=== PATIENT | male | born 1965 | race Caucasian/White ===

== ENCOUNTER 2023-06-22 16:04 | Emergency (ER) | payer OTHER, SELFPAY ==
[2023-06-22 16:12] VITALS: BP 156/96; PULSE 99; RESP 16; TEMP 36.8; O2SAT 96; BMI 41.5
[2023-06-22 16:18] VITALS: PULSE 100; RESP 16; TEMP 36.6; O2SAT 98
--- NOTE | 2023-06-22 16:36 | ED_ITS ---
HPI - Wound/Laceration General: Chief Complaint: Wound/Laceration Stated Complaint: hit on head Time Seen by Provider: 06/22/23 16:28 Source: patient Mode of arrival: ambulatory History of Present Illness: 57-year-old male presents to the emergency room with complaint of being struck in the head. He was working out of local [employer] and a metal barbara fell and hit him on the head. He was stunned he had no loss of consciousness no vision changes no nausea or vomiting is some mild neck discomfort. No nausea or vomiting since the episode happened approximately 2 and half hours ago. No radiation of pain into the arms. Onset (ago): hour(s) (2.5) Place: work Context: accidental Associated symptoms: Denies chills, fever(s), foreign body sensation, inability to move, nausea, numbness, pain, syncope or vomiting Review of Systems Const: Denies: fever(s), chills, fatigue or malaise ENMT: Denies: throat pain or ear or mastoid pain Card: Denies: chest pain or syncope Resp: Denies: dyspnea, productive cough or non-productive cough GI: Denies: abdominal pain, nausea or vomiting : Denies: flank pain, dysuria, urinary frequency or urinary urgency Musc: Reports: neck pain Skin/Breast: Denies: rash or pruritus Physical Exam Const: COMMON NORMALS: no acute distress GENERAL APPEARANCE: cooperative an d comfortable ORIENTATION/CONSCIOUSNESS: Yes awake, Yes oriented to person, Yes oriented to place and Yes oriented to time HENMT: COMMON NORMALS: normocephalic and hearing grossly normal bilaterally HEAD & SCALP: normocephalic Resp: COMMON NORMALS: normal respiratory effort, No retractions, No use of accessory muscles and clear to auscultation bilaterally AUSCULTATION: clear to auscultation bilaterally Cardio: COMMON NORMALS: regular rate, regular rhythm and No murmurs present (Cardio) RATE: regular rate RHYTHM: regular rhythm GI: COMMON NORMALS: Soft to palpation and No hepatosplenomegaly present AUSCULTATION: Yes normoactive bowel sounds PALPATION: Yes Soft to palpation, No Tenderness to palpation present (GI), No Guarding due to palpation present (GI) and Yes No hepatosplenomegaly present Extremity: COMMON NORMALS: normal to inspection, capillary refill normal, no clubbing, cyanosis or edema, no calf tenderness and no pedal edema Neuro: SENSORIUM/ORIENTATION: Yes oriented to person, Yes oriented to place and Yes oriented to time Skin: COMMON NORMALS: no rashes or lesions noted GENERAL SKIN EXAM: no rashes or lesions noted Course Vital Signs: Vital signs: Vital Signs Temperature 97.9 F 06/22/23 16:18 Pulse Rate 88 06/22/23 16:37 Respiratory Rate 18 06/22/23 16:37 Blood Pressure 157/95 06/22/23 16:37 Pulse Oximetry 95 06/22/23 16:37 Oxygen Delivery Me thod Room Air 06/22/23 16:37 MDM - Wound/Laceration Medical Decision Making Minor closed head injury no sign of laceration just minor abrasion neurologic exam is negative. Cervical spine evaluation negative. Observe recheck for any further problems. May return to work without restrictions Medical Records I reviewed the patient's medical records. Lab Data I reviewed the patient's lab results. Radiology Impressions Cervical Spine X-Ray 06/22/23 16:43 IMPRESSION: No acute findings. The lower cervical levels were obscured by the patient's shoulders on the lateral projections. All radiology interpretation(s) finalized by discharge Discharge Plan Discharge Patient Disposition: Home Clinical Impression: Closed head injury Condition: Stable Discharge Orders: Discharge ED (Routine); Ordered 06/22/23 Ordered By: Ry Lobo Discharge Diet: Usual diet Discharge Activity: Resume usual activity Patient Instructions: Opioid Safety, Pain Management Coding Level of Care Code ED Farm General Manager for Vinicius Uriarte
[2023-06-22 16:37] VITALS: BP 157/95; PULSE 88; RESP 18; O2SAT 95
--- NOTE | 2023-06-22 16:43 | XRR_ITS ---
PROCEDURE INFORMATION: Exam: XR Cervical Spine Exam date and time: 06/22/2023 4:52 PM Age: 57 years old Clinical indication: Neck pain; Additional info: Trauma/neck pain TECHNIQUE: Imaging protocol: Radiologic exam of the cervical spine. Views: 2 or 3 views. COMPARISON: No relevant prior studies available. FINDINGS: Bones/joints: C6 and C7 are obscured by the patient's shoulders. No fracture is identified. There is straightening of the cervical lordosis. Visualized alignment is otherwise normal. There is moderate C5 disc space narrowing with associated small marginal osteophytes. Facet arthropathy is suspected. Soft tissues: Unremarkable. XR/XR cervical spine 3V* [id number] IMPRESSION: No acute findings. The lower cervical levels were obscured by the patient's shoulders on the lateral projections.
== END 2023-06-22 17:39 | disposition home or self-care (01) ==
PROVIDERS: Emergency Provider Family Medicine
DX: S00.01XA Abrasion of scalp, initial encounter (principal); W20.8XXA Other cause of strike by thrown, projected or falling object, initial encounter; Y99.0 Civilian activity done for income or pay
CPT/HCPCS: 72040; 99283

== ENCOUNTER 2025-01-08 16:39 | Emergency (ER) | payer OTHER, SELFPAY ==
[2025-01-08 16:42] VITALS: BP 150/90; PULSE 92; TEMP 36.9; O2SAT 97; BMI 46.2
--- NOTE | 2025-01-08 19:34 | USR_ITS ---
PROCEDURE INFORMATION: Exam: US Duplex Lower Extremity Veins, Bilateral Exam date and time: 01/08/2025 8:08 PM Age: 59 years old Clinical indication: Edema, localized; Lower extremity, bilateral; Prior surgery; Surgery date: 1-6 months; Surgery type: Left total knee June 2024, right total knee August 2024. ; Additional info: Bilat swelling, redness, va concered for clot TECHNIQUE: Imaging protocol: Real-time duplex ultrasound of the bilateral extremities with 2-D zacarias scale, color Doppler flow and spectral waveform analysis including responses to compression and other maneuvers (when performed) with image documentation. Complete exam focused on the lower extremity veins. COMPARISON: No relevant prior studies available. FINDINGS: Right deep veins: Unremarkable. The common femoral, femoral, proximal profunda femoral and popliteal veins are patent without thrombus. Normal Doppler waveforms. Normal compressibility and/or augmentation response. Left deep veins: Unremarkable. The common femoral, femoral, proximal profunda femoral and popliteal veins are patent without thrombus. Normal Doppler waveforms. Normal compressibility and/or augmentation response. Superficial veins: Greater saphenous veins at the saphenofemoral junctions are patent bilaterally without thrombus. Soft tissues: Unremarkable. US/[place] [id number] IMPRESSION: No evidence of deep vein thrombosis.
--- NOTE | 2025-01-08 21:11 | ED_ITS ---
HPI - Extremity Problem General: Chief complaint: Extremity Problem,Nontraumatic Stated complaint: [facility] sent, discoloration in both legs Time Seen by Provider: 01/08/25 19:34 Source: patient Mode of arrival: ambulatory Limitations: no limitations History of Present Illness: Patient is a 59-year-old male who presents the emergency department complaining of bilateral lower extremity edema. This has been chronically worsening since bilateral knee replacement occurring late last year. [facility], patient was also noting a rash to his left lower extremity however states that upon history and physical that this has since resolved. Denies any sensation changes distally, coolness to the extremities, shortness of breath or chest pain. He does note that his legs bilaterally have seemed to become more erythematous, otherwise no other symptoms at this time. Vitals unremarkable. No history of DVT. No reported trauma. He is not reporting any significant pain to the lower extremities. MD Complaint: extremity swelling Onset (ago): month(s) Pain Consistency: constant Location: left, right and lower extremity Associated symptoms: Reports rash (Left lower extremity, now resolved); Deny chest pain or fever(s) Context: recent surgery/procedure (Late last year, bilateral knee replacement) Related Data Allergies Allergy/AdvReac Type Severity Reaction Status Date / Time No Known Allergies Allergy Verified 01/08/25 16:49 Review of Systems General: Reports: 10 or more systems reviewed and unremarkable except in HPI and below Const: Denies: fever(s) or chills Card: Denies: chest pain Resp: Denies: dyspnea or productive cough GI: Denies: abdominal pain, nausea, vomiting or diarrhea : Denies: flank pain Musc: Reports: extremity swelling; Denies: neck pain, back pain, extremity pain, joint pain, joint swelling, joint redness, joint warmth, limited range of motion or muscle weakness Skin/Breast: Reports: rash (Left lower extremity, now resolved) and erythema (Bilateral lower extremities) Neuro: Denies: headache(s), numbness in extremities or weakness in extremities Physical Exam Const: COMMON NORMALS: no acute distress, patient oriented x3, no limitations, healthy appearing, alert and well nourished HENMT: COMMON NORMALS: normocephalic and atraumatic HEAD & SCALP: normocephalic and atraumatic Neck/C-Spine: COMMON NORMALS: full ROM, supple and no meningeal signs Resp: COMMON NORMALS: normal respiratory effort, No use of accessory muscles and clear to auscultation bilaterally AUSCULTATION: clear to auscultation bilaterally Cardio: COMMON NORMALS: regular rate and regular rhythm RATE: regular rate RHYTHM: regular rhythm Extremity: COMMON NORMALS: full ROM, capillary refill normal, no joint enlargement and no clubbing, cyanosis or edema NARRATIVE EXTREMITY EXAM: 1+ pitting edema bilaterally, mild eryth danay noted bilaterally. No warmth to the extremities. Negative calf tenderness bilaterally. Distal DP/PT pulses 2+ bilaterally. Neuro: COMMON NORMALS: patient oriented x3, moves all extremities, no focal motor deficits and no sensory deficits noted SENSORIUM/ORIENTATION: Yes alert MENINGEAL SIGNS: Yes no meningeal signs Skin: COMMON NORMALS: no rashes or lesions noted GENERAL SKIN EXAM: no rashes or lesions noted Course Vital Signs: Vital signs: Vital Signs Temperature 98.4 F 01/08/25 16:42 Pulse Rate 92 01/08/25 16:42 Blood Pressure 150/90 01/08/25 16:42 Pulse Oximetry 97 01/08/25 16:42 Oxygen Delivery Me thod Room Air 01/08/25 16:42 MDM - Extremity (Nontraumatic) Medical Decision Making Patient presented with bilateral lower extremity edema sent from [place] they had concerns of blood clot. History of bilateral knee replacement late last year, stating swelling has worsened since then. On exam his pulses are palpable bilaterally, there is no calf edema, mild erythema noted bilaterally but no signs of cellulitis. He had no complaints of chest pain or shortness of breath, no history of DVT. His vitals have been stable, breathing comfortably on room air. Bilateral venous duplex ultrasound did not demonstrate any signs of DVT, in addition no signs of infection as mentioned. I suspect this is related to postoperative edema, however encouraged him to [facility]. No need for further lab work or imaging here in the ED, though I did discuss with him return precautions or reasons to return to which he verbalized understanding. Discharged in stable condition at this time. Lab Data Radiology Impressions Venous Duplex 01/08/25 19:34 IMPRESSION: No evidence of deep vein thrombosis. All radiology interpretation(s) finalized by discharge Discharge Plan Discharge Patient Disposition: Home Clinical Impression: Bilateral edema of lower extremity Condition: Stable Discharge Orders: Discharge ED (Routine); Ordered 01/08/25 Ordered By: Stas Dallas Referrals: Tiesha Dalton MD [Primary Care Provider] - Patient Instructions: Leg Edema (ED) Activity Restrictions/Additional Instructions: [facility] Your ultrasound today was negative for blood clots bilaterally. Please return with any shortness of breath, chest pain, fevers, worsening of your swelling, or other concerns that you have. Print Language: Malay Coding Level of Care Code ED Lockstitch Machine Operator for Vinicius Uriarte
[2025-01-08 21:18] VITALS: BP 134/81; PULSE 83; O2SAT 95
== END 2025-01-08 21:52 | disposition home or self-care (01) ==
PROVIDERS: Emergency Provider Physician Assistant; PCP Family Medicine
DX: R60.0 Localized edema (principal)
CPT/HCPCS: 93970; 99284

== ENCOUNTER 2025-03-14 08:21 | Outpatient (CLI) | payer OTHER, SELFPAY ==
[2025-03-14 08:26] VITALS: BMI 43.3
--- NOTE | 2025-03-14 08:37 | ECG_ITS ---
Gigzon Test Date: 2025-03-14 Pat Name: Fly Rodas Department: Room: Gender: Male [employer]: : 1965 Requested By: Tiesha Dalton Order Number: [id number] Andres MD: Janae Pisano M.D. Interpretive Statements Lung unchanged pre/post procedure; Intraprocedure shortess of breath; Symptoms resoled by discharge PROCEDURE: At the baseline, the EKG revealed normal sinus rhythm with a normal ST Ts. The baseline heart was 77 bpm with a blood pressue of 117/54 mm of Hg Lexiscan was infused over a period of 20 seconds. A total of 0.4 milligrams of Lexiscan was infused. The stress phase was continued for a total of 5 minutes. Heart rate at the end of the stress phase was 85 bpm with a blood pressure 109/82 mm of Hg. The EKG at the peak infusion revealed no significant changes. Sestamibi was injected 20 seconds after the Lexiscan infusion. Heart rate at the end of the recovery phase was 79 bpm with a blood pressure of 121/76 mm of Hg. CONCLUSION: 1. No significant EKG changes with the LexiScan infusion 2. No LexiScan induced chest pain or cardiac arrhythmia 3. Normal blood pressure and heart rate response 4. Sestamibi/sestamibi perfusion scan pending; see separate report. Electronically Signed On 03-16-2025 21:22:39 CDT by Janae Pisano M.D. [email or web address]
--- NOTE | 2025-03-14 08:38 | NMCV_ITS ---
NM elias perf SPECT r/s* [id number] Fly Rodas Age: 59 Gender: M : 1965 Exam Date: 03/14/2025 09:22 Ordering Phys: Tiesha Dalton MD Technologist: JJ Jacobsen Exam Location: [facility] Indications: cp STRESS TEST Please see separate stress test report in [facility] for full findings IMAGE PROTOCOL Rest/Stress 1 Lexiscan Day Radiopharmaceutical Dose (mCi) Administration Site Administered by Rest: Tc-99m 10.3 IV Herlinda Escobar, PHYSICAL THERAPY COORDINATOR Sestamibi Stress:Tc-99m 32.8 IV Herlinda Perezgle, PHYSICAL THERAPY COORDINATOR Sestamibi Rest: 14-Mar-2025 60 Discovery 630 Stress: 14-Mar-2025 30 Discovery 630 0.4mg Lexiscan. Images obtained in supine and prone position. SPECT RESULTS Technical Quality: Good Raw Data Analysis: Normal Image Corrections: No attenuation or motion correction applied Summed Stress Score: 0 Summed Rest Score: 0 Summed Difference Score: 0 PERFUSION FINDINGS Uniform myocardial tracer uptake with no significant Perfusion normalities FUNCTIONAL RESULTS (calculated via Gated SPECT) Stress Image LV EF (%): 78 Stress EDV (mL):97 TID: 1.12 Stress ESV (mL):21 FUNCTIONAL FINDINGS: Segmental wall motion analysis revealing no gross wall motion abnormalities IMPRESSIONS 1. Myocardial perfusion imaging revealing uniform myocardial tracer uptake with no significant pelvic abnormalities 2. Normal LV ejection fraction of 78% 3. LV wall motion analysis revealing no gross wall motion abnormalities. 4. Normal LV volume Low probability for coronary ischemia, based on the above findings Dr Jnaae Pisano MD FACC (Electronically Signed) Final Date: 14 March 2025 15:30 S
--- NOTE | 2025-03-14 10:22 | PC.NURSE ---
Stress test Pt here for exercise mibi. Pt exercised on treadmill about 6 minutes, pt unable to continue on treadmill and target HR was not met. Dr. Pisano notified of incompletion of stress test. Verbal orders received to switch stress test to Lexiscan mibi. Pt updated on plan.
[2025-03-14] MEDS: regadenoson 0.4 Mg/5 ml Syringe IVP (10:29)
[2025-03-14] MEDS: aminophylline 25 mg/mL SDV 20 mL IVP (10:38)
[2025-03-14 10:39] VITALS: BP 121/76; PULSE 80
== END 2025-03-14 08:22 | disposition home or self-care (01) ==
LOC: CDL 08:22
PROVIDERS: PCP Family Medicine; Visit Provider Family Medicine
DX: R07.9 Chest pain, unspecified (principal)
CPT/HCPCS: 36415; 78452; 93017; 96374; A9500; J0280; J2785